=== PATIENT | female | born 2000 | race American Indian/Alaskan Native ===

== ENCOUNTER 2021-04-02 03:30 | Outpatient (CLI) | payer MEDICAID ==
[2021-04-02 04:02] VITALS: BP 114/58
--- NOTE | 2021-04-02 06:33 | Ultrasound Report ---
US OB limited INDICATION: JACOB. TECHNIQUE: Transabdominal. COMPARISON: None available. FINDINGS: There is a single intrauterine . Heart Rate: 147 beats per minute. Position: cephalic. Amniotic Fluid Volume: normal Amniotic Fluid Index (JACOB) in cm (if calculated): 11.5. IMPRESSION: 1. Amniotic fluid is normal. Signer Name: Manish Valentin MD Signed: 04/02/2021 6:28 AM Workstation Name: [id number]
== END 2021-04-02 05:50 | disposition home or self-care (01) ==
LOC: APU 03:30 → TRG 03:30
PROVIDERS: ATTEND Obstetrics & Gynecology
DX: O42.92 Full-term premature rupture of membranes, unspecified as to length of time between rupture and onset of labor (principal); Z3A.37 37 weeks gestation of pregnancy
CPT/HCPCS: 36415; 76815; 84112

== ENCOUNTER 2021-04-12 15:28 | Outpatient (CLI) | payer MEDICAID ==
[2021-04-12 16:50] VITALS: BP 117/68
[2021-04-12] MEDS ORDERED: FLUCONAZOLE 200 MG TAB PO ONE (17:15)
== END 2021-04-12 17:25 | disposition home or self-care (01) ==
LOC: TRG 15:28 → APU 16:32 → TRG 17:25
PROVIDERS: ATTEND Obstetrics & Gynecology
DX: Z34.93 Encounter for supervision of normal pregnancy, unspecified, third trimester (principal); Z3A.38 38 weeks gestation of pregnancy
CPT/HCPCS: 59025

== ENCOUNTER 2021-04-23 02:55 | Inpatient (IN) | payer MEDICAID ==
[2021-04-23] MEDS ORDERED: BUTORPHANOL 2 MG/1 ML INJ IV PRN (04:12)
[2021-04-23] MEDS ORDERED: METHYLERGONOVINE MALEATE 0.2 MG/ML VIAL IM PRN (04:12)
[2021-04-23] MEDS ORDERED: ePHEDrine SULFATE 50 MG/1 ML INJ IV PRN ×2 (04:12→08:00)
[2021-04-23] MEDS ORDERED: ACETAMINOPHEN 325 MG TAB PO PRN ×2 (04:12→13:21)
[2021-04-23] MEDS ORDERED: ONDANSETRON 4 MG/2 ML INJ IV PRN ×2 (04:12→13:21)
[2021-04-23] MEDS ORDERED: LIDOCAINE (2%) 20 MG/1 ML VIAL 20 ML MDV INFILTRATI ONE ×2 (04:12→12:04)
[2021-04-23] MEDS ORDERED: LOPERAMIDE 2 MG CAP PO PRN (04:12)
[2021-04-23] MEDS ORDERED: CARBOPROST TROMETHAMINE 250 MCG/1 ML INJ IM PRN (04:12)
[2021-04-23] MEDS ORDERED: TERBUTALINE 1 MG/1 ML INJ SUB-Q PRN (04:12)
[2021-04-23] MEDS ORDERED: fentaNYL 100 MCG/2 ML INJ IV PRN (04:12)
[2021-04-23] MEDS ORDERED: OXYTOCIN 10 UNIT/1 ML INJ IM PRN (04:12)
[2021-04-23] MEDS ORDERED: MINERAL OIL 30 ML ORAL LIQD PO PRN (04:12)
[2021-04-23] MEDS ORDERED: miSOPROStol 200 MCG TAB PR PRN (04:12)
[2021-04-23] MEDS ORDERED: LACTATED RINGERS 1,000 ML IV SCH (04:15)
[2021-04-23] MEDS ORDERED: OXYTOCIN DRIP 30 UNITS/500 ML BAG IV SCH ×2 (05:00→14:00)
[2021-04-23 06:10] LABS: Hematocrit 32.3 % (30.3-42.9); Hemoglobin 10.6 gm/dl (10.1-14.3); Mean Corpuscular HGB Conc 33 % (30-34); Mean Corpuscular Volume 85 fl (79-97); Platelet Count 315 K/mm3 (140-440); Red Blood Count 3.79 M/mm3 (3.65-5.03); Red Cell Distribution Width 14.5 % (13.2-15.2)
--- NOTE | 2021-04-23 06:44 | History and Physical Report ---
History of Present Illness Date of examination: 04/23/21 Chief complaint: contractions History of present illness: 20-year-old G1 at 40 weeks 2 days (CARYL 04/21/2021) complicated by anemia with h emoglobin of 9.5 on iron, chlamydia status post treatment with negative test of cure, eczema, GBS negative, history of palpitations status post cardiology referral, varicella nonimmune presenting with contractions evaluate active labor at 4 cm for application of labor. Denies leakage of fluid or vaginal bleeding. Active fetus. Denies PIH symptoms. chart reviewed O+, antibody negative Hemoglobin hematocrit 12.1 and 35.9. Rubella immune, VDRL nonreactive, urine culture negative, hemoglobin B surface antigen negative, HIV negative, platelets 343K, varicella nonimmune Chlamydia positive status post negative test of cure, hemoglobin electrophoresis AA 1 hour GTT 111 GBS negative Past History Past Medical History: no pertinent history Past Surgical History: no surgical history [employer] History: chlamydia Family/Genetic History: none Social history: no significant social history - Obstetrical History Expected Date of Delivery: 04/21/21 Actual Gestation: 40 Week(s) 2 Day(s) : 1 Medications and Allergies Allergies Allergy/AdvReac Type Severity Reaction Status Date / Time No Known Allergies Allergy Unverified 04/02/21 03:58 Active Meds: Active Medications Acetaminophen (Acetaminophen 325 Mg Tab) 650 mg PO Q4H PRN PRN Reason: Pain, Mild (1-3) Butorphanol Tartrate (Butorphanol 2 Mg/1 Ml Inj) 1 mg IV Q2H PRN PRN Reason: Pain, Moderate(4-6) LABOR PAIN Carboprost Tromethamine (Carboprost Tromethamine 250 Mcg/1 Ml Inj) 250 mcg IM ONCE PRN PRN Reason: Uterine Bleeding Ephedrine Sulfate (Ephedrine Sulfate 50 Mg/1 Ml Inj) 10 mg IV Q2M PRN PRN Reason: Hypotension Fentanyl (Fentanyl 100 Mcg/2 Ml Inj) 100 mcg IV Q2H PRN PRN Reason: Pain,Severe (7-10) LABOR PAIN Oxytocin/Sodium Chloride (Pitocin/Ns 30 Unit/500ml) 30 units in 500 mls @ 2 mls/hr IV TITR ROSA; Protocol Lactated Ringer's (Lactated Ringers) 1,000 mls @ 125 mls/hr IV DIRECT ROSA Oxytocin/Sodium Chloride (Pitocin/Ns 30 Unit/500ml) 30 units in 500 mls @ 40 mls/hr IV TITR ROSA; Protocol Loperamide HCl (Loperamide 2 Mg Cap) 2 mg PO ONCE PRN PRN Reason: give with Hemabate Methylergonovine Maleate (Methylergonovine Maleate 0.2 Mg/Ml Vial) 0.2 mg IM ONCE PRN PRN Reason: Uterine Bleeding Mineral Oil (Mineral Oil 30 Ml Oral Liqd) 30 ml PO QHS PRN PRN Reason: Constipation Misoprostol (Misoprostol 200 Mcg Tab) 800 mcg SD ONCE PRN PRN Reason: Uterine Bleeding Ondansetron HCl (Ondansetron 4 Mg/2 Ml Inj) 4 mg IV Q8H PRN PRN Reason: Nausea And Vomiting Oxytocin (Oxytocin 10 Unit/1 Ml Inj) 10 unit IM ONCE PRN PRN Reason: Uterine Bleeding Terbutaline Sulfate (Terbutaline 1 Mg/1 Ml Inj) 0.25 mg SUB-Q ONCE PRN PRN Reason: Hyperstimulation/Hypertonicity Review of Systems All systems: negative (expect HPI) - Vital Signs Vital signs: Vital Signs Temp Pulse Resp BP 98.5 F 77 18 134/85 04/23/21 03:15 04/23/21 03:15 04/23/21 03:15 04/23/21 03:15 Temp Pulse Resp BP Pulse Ox 98.4 F 70 18 136/74 99 04/23/21 04:52 04/23/21 06:41 04/23/21 03:15 04/23/21 06:41 04/23/21 05:05 - Physical Exam Abdomen: Positive: normal appearance, normal bowel sounds Uterus: Positive: enlarged - Obstetrical FHR: category 1 Uterine Contraction Monitor Mode: External Cervical Dilatation: 4 Uterine Contraction Pattern: Regular Results Result Diagrams: 04/23/21 05:30 All other labs normal. Assessment and Plan - Patient Problems (1) Active labor at term Current Visit: Yes Status: Acute Plan to address problem: For augmentation of labor given out active labor, 4 cm. GBS negative. Proceed with Pitocin per protocol for induction of labor. Epidural is available for pain management. Anticipate spontaneous vaginal delivery.
[2021-04-23] MEDS ORDERED: NALOXONE 2 MG/2 ML INJ IV PRN (08:00)
[2021-04-23] MEDS ORDERED: fentaNYL-BUPIV 2 MCG/ML-0.125% 200 MCG/100 ML BAG EPIDURAL SCH (08:00)
--- NOTE | 2021-04-23 08:02 | Anesthesia Consultation ---
Anesthesia Consult and Med Hx Date of service: 04/23/21 - Airway Anesthetic Teeth Evaluation: Poor ROM Head & Neck: Adequate Mental/Hyoid Distance: Adequate Mallampati Class: Class II Intubation Access Assessment: Probably Good - Pulmonary Exam CTA: Yes - Cardiac Exam Cardiac Exam: RRR - Pre-Operative Health Status ASA Pre-Surgery Classification: ASA2 Proposed Anesthetic Plan: Epidural - Pulmonary Hx Smoking: No Hx Asthma: No Hx Respiratory Symptoms: No SOB: No COPD: No Home Oxygen Therapy: No Hx Pneumonia: No Hx Sleep Apnea: No - Cardiovascular System Hx Hypertension: No Hx Coronary Artery Disease: No Hx Heart Attack/AMI: No Hx Angina: No Hx Percutaneous Transluminal Coronary Angioplasty (PTCA): No Hx Cardia Arrhythmia: No Hx Pacemaker: No Hx Internal Defibrillator: No Hx Valvular Heart Disease: No Hx Heart Murmur: No Hx Peripheral Vascular Disease: No - Central Nervous System Hx Neuromuscular Disorder: No Hx Seizures: No CVA: No Hx Back Pain: Yes Hx Psychiatric Problems: Yes (anxiety) - Gastrointestinal Hx Ulcer: No Hx Gastroesophageal Reflux Disease: No - Endocrine Hx Renal Disease: No Hx End Stage Renal Disease: No Hx Cirrhosis: No Hx Liver Disease: No Hx Insulin Dependent Diabetes: No Hx Non-Insulin Dependent Diabetes: No Hx Thyroid Disease: No Hx Hypothyroidism: No Hx Hyperthyroidism: No - Hematic Hx Anemia: No Hx Sickle Cell Disease: No - Other Systems Hx Alcohol Use: No Hx Substance Use: No Hx Cancer: No Hx Obesity: Yes
--- NOTE | 2021-04-23 08:10 | Progress Note ---
Labor Epidural - Labor Epidural Start Time: 06:50 Stop Time: 07:13 Performed by:: LAUREEN SCHWARTZ Procedure: Patient is requesting a laboring epidural for laboring pain. Patient IDed, H&P reviewed, all questions and concerns were answered, and consent was signed. Timeout was performed at bedside. Patient in sitting position. Sterile prep and drape was performed. [3] ml of 1% lidocaine skin wheal at L[3]- L [4]. 18- gauge Shoozy epidural needle was advanced to loss of resistance with saline technique 8cm. Negative CSF negative blood. Epidural catheter advanced to [12] centimeters. [NEGATIVE] Aspiration [NEGATIVE] test dose. Sterile dressing applied. Patient tolerated procedure.
[2021-04-23] MEDS ORDERED: BUPIVACAINE/PF (0.25%) 2.5 MG/ML 10 ML VIAL INFILTRATI ONE (09:44)
[2021-04-23] MEDS: OXYTOCIN DRIP 30 UNITS/500 ML BAG IV SCH ×2 (11:58→12:33)
[2021-04-23] MEDS ORDERED: PROMETHAZINE 25 MG TAB PO PRN (13:21)
[2021-04-23] MEDS ORDERED: LANOLIN/ZINC/DIMETHICONE (LANSINOH) 7 GM TP PRN (13:21)
[2021-04-23] MEDS ORDERED: diphenhydrAMINE 25 MG CAP PO PRN (13:21)
[2021-04-23] MEDS ORDERED: PROMETHAZINE 25 MG RECT SUPP PR PRN (13:21)
[2021-04-23] MEDS ORDERED: WITCH HAZEL/ GLYCERIN PAD TP PRN (13:21)
[2021-04-23] MEDS ORDERED: MAGNESIUM HYDROXIDE (MOM) ORAL LIQD UDC PO PRN (13:21)
--- NOTE | 2021-04-23 13:26 | Procedure Note ---
OB Delivery Note - Delivery Date of Delivery: 04/23/21 Surgeon: SANDRA GUZMÁN JR Estimated blood loss: other (1123cc) - Vaginal Delivery presentation: vertex Delivery position: OA Intrapartum events: uterine atony (improved with IM pitocin and methergine x 1) Delivery augmentation: rupture of membranes, pitocin Delivery monitor: external FHT, external uterine Route of delivery: Indicators for instrumentation: maternal exhaustion Delivery placenta: spontaneous Delivery laceration: 3rd degree (partial laceration, sphinter intact, s/p extensive repair, slight continued ooze s/p vaginal packing x 24H) Delivery repair: vicryl Anesthesia: local, intravenous, epidural Delivery comments: Status post vacuum-assisted vaginal delivery of male at 1154 height 21.5 inches. Weight 3570 g. Apgars 8/9. Patient with significant hemorrhage secondary to atony improved with IM Pitocin and Methergine x1. Patient noted to have a partial third-degree laceration with the anal sphincter noted to be intact repaired with 2-0 Vicryl. Patient did have a light persistent use at the perineum and given a vaginal pack and a stay in for 24 hours. EBL - A at 1 minute: 8 at 5 minutes: 9 Infant Gender: Male
[2021-04-23] MEDS: IBUPROFEN 600 MG TAB PO SCH ×2 (16:40→22:49)
[2021-04-23 17:08] LABS: Basophils % (Auto) 0.3 % (0.0-1.8); Eosinophils % (Auto) 0.1 % (0.0-4.3); Hemoglobin 9.6 gm/dl (10.1-14.3); Lymphocytes # (Auto) 1.9 K/mm3 (1.2-5.4); Lymphocytes % (Auto) 13.8 % (13.4-35.0); Mean Corpuscular HGB Conc 32 % (30-34); Mean Corpuscular Volume 86 fl (79-97); Monocytes # (Auto) 1.5 K/mm3 (0.0-0.8); Monocytes % (Auto) 11.4 % (0.0-7.3); Platelet Count 275 K/mm3 (140-440); Red Blood Count 3.47 M/mm3 (3.65-5.03); Red Cell Distribution Width 14.9 % (13.2-15.2)
[2021-04-24 01:05] LABS: Hematocrit 24.9 % (30.3-42.9)
[2021-04-24] MEDS: oxyCODONE /ACETAMINOPHEN 5-325MG TAB PO PRN ×4 (04:12→23:04)
[2021-04-24] MEDS: IBUPROFEN 600 MG TAB PO SCH ×3 (05:57→18:50)
--- NOTE | 2021-04-24 09:17 | Progress Note ---
Assessment and Plan anemia from pph. hct stable at 24%. will continue to watch hct. remove packing at 1 pm. - Patient Problems (1) PPH ( hemorrhage) Current Visit: No Status: Acute Qualifiers: hemorrhage type: other immediate Qualified Code(s): O72.1 - Other immediate hemorrhage Plan to address problem: remove packing at 1 pm today. Subjective - Subjective Date of service: 04/24/21 Principal diagnosis: pph, vaginal packing, Interval history: ppday 1 has packing to come out at 1 pm today. Patient reports: appetite normal, voiding normally, pain well controlled, ambulating normally [place]: doing well Objective - Vital Signs Latest vital signs: Vital Signs Temp Pulse Resp BP BP Pulse Ox 04/24/21 08:02 97.6 F 70 18 103/57 100 04/24/21 06:51 18 04/24/21 05:57 18 04/24/21 05:15 98.2 F 80 18 105/50 100 04/24/21 05:10 18 04/24/21 04:12 18 04/24/21 01:02 98.7 F 92 H 18 123/65 100 04/23/21 23:47 18 04/23/21 22:49 18 04/23/21 21:04 97.6 F 87 18 134/72 100 04/23/21 16:40 20 04/23/21 15:52 97.2 F L 69 20 138/91 100 04/23/21 15:28 138/91 04/23/21 15:01 68 105/54 04/23/21 14:38 218 H 123/66 04/23/21 14:36 79 98 04/23/21 14:33 66 133/66 04/23/21 14:31 71 100 04/23/21 14:26 77 100 04/23/21 14:21 78 100 04/23/21 14:18 67 119/69 04/23/21 14:16 66 99 04/23/21 14:13 68 122/69 04/23/21 14:11 70 100 04/23/21 14:06 72 100 04/23/21 14:01 71 100 04/23/21 13:56 79 100 04/23/21 13:51 73 98 04/23/21 13:48 63 100/59 04/23/21 13:46 70 99 04/23/21 13:43 76 114/73 04/23/21 13:41 84 100 04/23/21 13:38 72 110/58 04/23/21 13:36 76 100 04/23/21 13:33 60 124/71 04/23/21 13:31 67 100 04/23/21 13:29 66 115/67 04/23/21 13:28 52 L 89 04/23/21 13:26 79 99 04/23/21 13:24 70 119/61 04/23/21 13:23 75 92 04/23/21 13:20 74 100 04/23/21 13:18 113/63 04/23/21 13:15 83 100 04/23/21 13:14 72 124/56 04/23/21 13:10 74 100 04/23/21 13:05 73 96 04/23/21 13:04 81 91 04/23/21 13:00 61 100 04/23/21 12:58 67 143/75 04/23/21 12:55 54 L 100 04/23/21 12:54 54 L 149/83 04/23/21 12:50 62 100 04/23/21 12:48 58 L 144/81 04/23/21 12:45 59 L 100 04/23/21 12:44 62 162/101 04/23/21 12:40 56 L 100 04/23/21 12:38 65 122/81 04/23/21 12:35 60 98 04/23/21 12:33 68 137/85 04/23/21 12:30 97.7 F 64 100 04/23/21 12:28 68 176/92 04/23/21 12:25 68 100 04/23/21 12:23 63 118/80 04/23/21 12:20 66 100 04/23/21 12:18 66 135/83 04/23/21 12:15 77 100 04/23/21 12:13 65 134/82 04/23/21 12:10 68 100 04/23/21 12:09 20 04/23/21 12:08 73 128/74 04/23/21 12:05 88 100 04/23/21 12:04 75 92 04/23/21 12:00 96 H 100 04/23/21 11:59 92 H 108/60 85 04/23/21 11:55 85 100 04/23/21 11:52 77 94 04/23/21 11:50 66 100 04/23/21 11:45 71 100 04/23/21 11:39 62 99 04/23/21 11:34 67 99 04/23/21 11:29 78 100 04/23/21 11:24 73 100 04/23/21 11:19 73 97 04/23/21 11:14 71 124/83 100 04/23/21 11:12 70 117/86 04/23/21 11:10 67 137/82 04/23/21 11:09 70 97 04/23/21 11:08 68 122/67 04/23/21 11:06 68 125/70 04/23/21 11:04 68 125/71 98 04/23/21 11:02 64 128/71 04/23/21 11:00 68 124/67 04/23/21 10:59 68 98 04/23/21 10:58 63 127/74 04/23/21 10:56 66 128/70 04/23/21 10:54 70 132/79 99 04/23/21 10:52 68 127/75 04/23/21 10:50 72 127/76 04/23/21 10:49 74 99 04/23/21 10:48 71 126/73 04/23/21 10:46 75 125/77 04/23/21 10:44 63 121/70 98 04/23/21 10:42 66 120/69 04/23/21 10:40 75 126/79 04/23/21 10:39 72 98 04/23/21 10:35 78 129/59 04/23/21 10:34 84 97 04/23/21 10:32 65 125/69 04/23/21 10:30 84 128/57 04/23/21 10:29 77 96 04/23/21 10:28 76 134/65 04/23/21 10:26 70 129/67 04/23/21 10:24 80 99 04/23/21 10:19 73 99 04/23/21 10:18 65 91 04/23/21 10:14 83 134/76 99 04/23/21 10:12 68 131/84 04/23/21 10:10 71 130/94 04/23/21 10:09 69 99 07/25/21 10:08 77 133/76 04/23/21 10:04 69 97 04/23/21 09:59 70 98 04/23/21 09:54 73 98 04/23/21 09:49 74 97 04/23/21 09:44 76 98 04/23/21 09:43 78 137/79 04/23/21 09:39 68 98 04/23/21 09:37 87 94 04/23/21 09:34 66 96 04/23/21 09:29 71 162/92 98 04/23/21 09:25 66 144/94 04/23/21 09:24 85 98 04/23/21 09:19 78 100 04/23/21 09:14 91 H 99 Intake and Output 04/23/21 04/24/21 04/24/21 23:59 07:59 15:59 Intake Total 660 Output Total 400 700 Balance -400 -40 Intake: Oral 480 Intake, Free Water 180 Output: Urine 400 700 Void 400 700 Other: Total, Intake Amount 480 Total, Output Amount 400 700 # Voids Void 1 1 - Exam Abdomen: Present: normal appearance, soft Extremities: Present: normal Incision: Present: normal, dry, intact - Labs Labs: Abnormal lab results 04/23/21 04/24/21 Range/Units 16:52 00:39 WBC 13.5 H (4.5-11.0) K/mm3 RBC 3.47 L (3.65-5.03) M/mm3 Hgb 9.6 L 8.0 L (10.1-14.3) gm/dl Hct 30.0 L 24.9 L (30.3-42.9) % Wise % (Auto) 11.4 H (0.0-7.3) % Wise # (Auto) 1.5 H (0.0-0.8) K/mm3 Seg Neutrophils % 74.4 H (40.0-70.0) % Seg Neutrophils # 10.1 H (1.8-7.7) K/mm3
--- NOTE | 2021-04-24 15:02 | Post Anesthesia Evaluation ---
- Post Anesthesia Evaluation Patient Participated: Yes Airway Patent: Yes Stable Respiratory Function: Yes Nausea/Vomiting: No Temp > 96.8F: Yes Pain Manageable: Yes Adequeate Hydration: Yes Anesthesia Complications: No Block Receding Appropriately: Yes Patient on Ventilator: No
[2021-04-25] MEDS: IBUPROFEN 600 MG TAB PO SCH ×2 (02:00→12:55)
--- NOTE | 2021-04-25 09:19 | Discharge Summary ---
Providers - Providers Date of Admission: 04/23/21 04:12 Date of discharge: 04/25/21 Attending physician: SANDRA GUZMÁN JR, MD Primary care physician: SANDRA GUZMÁN JR, MD Hospitalization Reason for admission: active labor, IUP at term Delivery: vacuum extraction Episiotomy: none Laceration: 3rd degree Incision: normal, intact Other procedures: none complications: none Discharge diagnosis: IUP at term delivered baby: male Condition at discharge: Stable Disposition: DC-01 TO HOME OR SELFCARE Plan - Discharge Medications Prescriptions: Docusate Sodium [Colace] 100 mg PO BID PRN #30 capsule PRN Reason: Constipation Ibuprofen [Motrin 600 MG tab] 600 mg PO Q6H #30 tablet - Provider Discharge Summary Activity: routine, no sex for 6 weeks, no heavy lifting 4 weeks, no strenuous exercise Diet: other (high Fe diet) Additional instructions: [] Smoking cessation referral if applicable(refer to patient education folder for contact #) [] Refer to [facility] Booklet Call your doctor immediately for: * Fever > 100.5 * Heavy vaginal bleeding ( >1 pad per hour) * Severe persistent headache * Shortness of breath * Reddened, hot, painful area to leg or breast * Drainage or odor from incision. * Keep incision clean and dry at all times and follow doctor's instructions regarding bathing/showering - Follow up plan Follow up: SANDRA GUZMÁN JR, MD [Primary Care Provider] - 6 Weeks
[2021-04-25] MEDS ORDERED: FERROUS SULFATE 325 MG TAB PO SCH (10:00)
[2021-04-25 12:19] VITALS: BP 125/78
== END 2021-04-25 12:30 | disposition home or self-care (01) | DRG 774 ==
LOC: TRG 02:55 → APU 03:04 → TRG 04:12 → LD 04:12 → OB 15:04
PROVIDERS: ADMIT Obstetrics & Gynecology; ATTEND Obstetrics & Gynecology
PROC: 10E0XZZ Delivery of Products of Conception, External Approach (ICD-10-PCS; principal; 2021-04-23)
PROC: 0DQR0ZZ Repair Anal Sphincter, Open Approach (ICD-10-PCS; 2021-04-23)
PROC: 3E0R3BZ Introduction of Anesthetic Agent into Spinal Canal, Percutaneous Approach (ICD-10-PCS; 2021-04-23)
PROC: 00HU33Z Insertion of Infusion Device into Spinal Canal, Percutaneous Approach (ICD-10-PCS; 2021-04-23)
DX: O72.1 Other immediate postpartum hemorrhage (principal); Z3A.40 40 weeks gestation of pregnancy; O70.20 Third degree perineal laceration during delivery, unspecified; Z37.0 Single live birth; Z20.822 Contact with and (suspected) exposure to COVID-19
CPT/HCPCS: 36415; 59025; 85014; 85018; 85025; 85027; 86592; 86850; 86900; 86901; G0378; J2210; J2405; J2590; J3010; J7120; U0003